=== PATIENT | female | born 1985 | race Caucasian/White ===

== ENCOUNTER 2021-08-14 12:01 | Outpatient (REF) | payer BC, SELFPAY ==
--- NOTE | 2021-08-14 10:45 | CER_PTH ---
PATIENT: Nicolle Bravo LOC: [facility] U#:[id number] AGE/SX: 35/F ROOM: RE08/14/[address]: Kaleigh Gutierrez MD : 1985 BED: DIS: 08/14/2021 SPEC #: [id number] RECD: 08/14/21 12:28 STATUS: DORIS REChris #: [id number] WILLI: 08/14/21 10:[address]: Kaleigh Gutierrez DEPT: Surgical Specimen RECD BY: Mary Paz ENTERED: 08/14/21 12:29 SP TYPE: CER OTHR DR: Nico Schilling DO Tissues: 1 - CERVICAL BIOPSY Procedures: GROSS AND MICRO LEVEL 4 Comments: [id number]
== END 2021-08-14 12:02 | disposition home or self-care (01) ==
LOC: LBN 12:01
PROVIDERS: PCP Family Medicine; Visit Provider Obstetrics & Gynecology
DX: N88.8 Other specified noninflammatory disorders of cervix uteri (principal); R87.611 Atypical squamous cells cannot exclude high grade squamous intraepithelial lesion on cytologic smear of cervix (ASC-H)
CPT/HCPCS: 88305

== ENCOUNTER 2022-12-03 10:54 | Outpatient (REF) | payer BC, SELFPAY ==
--- NOTE | 2022-12-03 10:45 | PAPFT_PTH ---
PATIENT: Nicolle Bravo LOC: [facility] U#:[id number] AGE/SX: 37/F ROOM: RE12/03/[address]: Kaleigh Gutierrez MD : 1985 BED: DIS: 12/03/2022 SPEC #: [id number] RECD: 12/03/22 17:58 STATUS: DORIS REChris #: [id number] WILLI: 12/03/22 10:[address]: Kaleigh Gutierrez DEPT: [facility] Cytology RECD BY: Mary Paz ENTERED: 12/03/22 17:58 SP TYPE: PAPFT ROSASHR DR: Nico Schilling DO Tissues: 1 - CX/ENDOCX FOR PAP SMEARS Procedures: PAP THIN PREP/[facility] Screening HPV DNA PROBE Comments: [id number]
== END 2022-12-03 10:55 | disposition home or self-care (01) ==
LOC: LBN 10:54
PROVIDERS: PCP Family Medicine; Visit Provider Obstetrics & Gynecology
DX: Z11.51 Encounter for screening for human papillomavirus (HPV) (principal)
CPT/HCPCS: 88142; 87624

== ENCOUNTER 2025-01-02 11:27 | Outpatient (REF) | payer BC, SELFPAY ==
--- NOTE | 2025-01-02 11:00 | PAPFT_PTH ---
PATIENT: Nicolle Bravo LOC: [facility] U#:[id number] AGE/SX: 39/F ROOM: RE01/02/[address]: Kaleigh Gutierrez MD : 1985 BED: DIS: 01/02/2025 SPEC #: [id number] RECD: 01/02/25 12:38 STATUS: DORIS REQ #: [id number] WILLI: 01/02/25 11:[address]: Kaleigh Gutierrez DEPT: [facility] Cytology RECD BY: Mary Paz ENTERED: 01/02/25 12:38 SP TYPE: PAPFT OTHR DR: Nico Schilling DO Tissues: 1 - CX/ENDOCX FOR PAP SMEARS Procedures: PAP THIN PREP/[facility] Screening HPV DNA PROBE Comments: [id number] (HPV 16 & 18/45)
== END 2025-01-02 11:28 | disposition home or self-care (01) ==
LOC: LBN 11:27
PROVIDERS: PCP Family Medicine; Visit Provider Obstetrics & Gynecology
DX: Z12.4 Encounter for screening for malignant neoplasm of cervix (principal)
CPT/HCPCS: 88142; 87624